=== PATIENT | female | born 1985 | race Caucasian/White ===

== ENCOUNTER → 2020-06-09 | Outpatient (CLI) | payer OTHER ==
--- NOTE | 2020-06-09 10:13 | WOMENS IMAGING REPORT ---
EXAM DESCRIPTION: U/S BREAST UNILAT LIMITED IMAGES COMPLETED DATE/TIME: 06/09/2020 8:09 am REASON FOR STUDY: N66.1 ABSCESS OF THE BREAST AND NIPPLE N61.1 ABSCESS OF THE BREAST AND NIPPLE COMPARISON: None. TECHNIQUE: Real-time and static grayscale imaging performed of the right breast targeted to the area of clinical/mammographic concern, March 2011 o'clock location. Selected color Doppler images recor ded. LIMITATIONS: None. FINDINGS: MASS: Irregular hypoechoic tissue measuring 2.5 x 4.5 x 5.2 cm. OTHER: No other significant finding. IMPRESSION: Irregular hypoechoic tissue as described. Given the clinical history, this most likely represents soft tissue infection and developing abscess. No drainable fluid at this time. BIRAD: 2 Benign findings. RECOMMENDATION: RECOMMENDED FOLLOW-UP: Follow-up as clinically indicated. May need re-imaging if th e patient's condition does not improve with treatment. COMMENT: The [employer] ([employer]) has developed recommendations for screening MRI of the breasts in certain patient populations, to be used in conjunction with mammography. Breast MRI s urveillance may be appropriate for women with more than 20% lifetime risk of developing breast cancer as determined by genetic testing, significant family history of the disease, or history of mantle r adiation for Hodgkins Disease. [employer] Practice Guidelines 2008. TECHNICAL DOCUMENTATION: JOB ID: [id number] 2010 [employer]- All Rights Reserved Reading location - IP/workstation name: [email or web address]
== END ==
LOC: WI 07:05
PROVIDERS: ATTEND Emergency Medicine
DX: N61.1 Abscess of the breast and nipple (principal)
CPT/HCPCS: 76642